=== PATIENT | female | born 1965 | race Caucasian/White ===

== ENCOUNTER 2017-11-16 05:42 | Day surgery (SDC) | payer BC ==
[~2017-11-16] VITALS: Ht 167.6 cm; Wt 63.5 kg
[2017-11-16] VITALS (12 sets, daily range): BP systolic 118–140; BP diastolic 68–86
[~2017-11-16 05:42] MED LIST: TRAZODONE HCL150 MG ORAL; VENLAFAXINE H37.5 MG ORAL; XANAX0.5 MG ORAL
[2017-11-16] MEDS ORDERED: CALCIUM600 M1 PO (06:22)
[2017-11-16] MEDS ORDERED: EXEMESTANE25 MG PO (06:22)
[2017-11-16 06:57] LABS: ANION GAP 12 mmol/L (5-15); BLOOD UREA NITROGEN 21 mg/dL (7-18); CALCIUM 9.3 MG/DL (8.5-10.1); CARBON DIOXIDE 27 MMOL/L (21-32); CHLORIDE 101 MMOL/L (98-107); CREATININE 0.8 MG/DL (0.55-1.30); POTASSIUM 4.2 MMOL/L (3.5-5.1); SODIUM 140 MMOL/L (136-145)
[2017-11-16 06:58] LABS: BASOPHILS % (AUTO) 1.2 % (0.0-2.0); HEMATOCRIT 37.2 % (37.0-47.0); HEMOGLOBIN 12.3 G/DL (12.0-16.0); LYMPHOCYTES % (AUTO) 25.9 % (20.0-45.0); MEAN CORPUSCULAR VOLUME 88 FL (80-99); MONOCYTES % (AUTO) 8.2 % (1.0-10.0); NEUTROPHILS % (AUTO) 62.7 % (45.0-75.0); PLATELET COUNT 244 K/UL (150-450); RED BLOOD COUNT 4.23 M/UL (4.20-5.40); RED CELL DISTRIBUTION WIDTH 11.8 % (11.6-14.8); WHITE BLOOD COUNT 5.7 K/UL (4.8-10.8)
[2017-11-16 06:59] LABS: INR 1.1 (0.9-1.1)
[2017-11-16] MEDS ORDERED: Lidocaine 1% 10mg/ml/Epi 0.005mg/ml 30ml vial INJ ONE (07:12)
[2017-11-16] MEDS ORDERED: Bacitracin Oint 15gm Tube TOPIC ONE (07:12)
[2017-11-16] MEDS ORDERED: LR 1000ml 1,000 ML IVLG SCH (07:18)
--- NOTE | 2017-11-16 07:18 | Anethesia Preoperative Eval ---
Anesthesia Pre-op PMH/ROS General Date of Evaluation: Nov 16, 2017 Anesthesiologist: Rigoberto ASA Score: ASA 3 Mallampati Score Class I : Soft palate, uvula, fauces, pillars visible Class II: Soft palate, uvula, fauces visible Class III: Soft palate, base of uvula visible Class IV: Only hard plate visible Mallampati Classification: Class II Surgeon: Claudia Diagnosis: Right breast radiation Surgical Procedure: Right breast capsulotomy Anesthesia History: none Family History: no anesthesia problems Allergies: Coded Allergies: LEVOFLOXACIN (Verified Allergy, Severe, 11/15/17) THROAT CLOSES UP,HIVES PENICILLINS (Verified Allergy, Severe, 11/15/17) THROAT CLOSES UP,HIVES BACITRACIN (Verified Allergy, Intermediate, 11/16/17) TOPICAL OINTMENT-ITCHY,HIVES NEOMYCIN (Verified Allergy, Intermediate, 11/16/17) TOPICAL OINTMENT-ITCHY,HIVES PRAMOXINE (Verified Allergy, Intermediate, 11/15/17) TOPICAL OINTMENT-ITCHY,HIVES Uncoded Allergies: CEPHALOSPO (Allergy, Severe, 11/15/17) THROAT CLOSES UP,HIVES Medications: see eMAR Past Medical History Cardiovascular: Denies: HTN, CAD, [place], valve dz, arrhythmia, other Pulmonary: Denies: asthma, COPD, DAMI[place]N, other Gastrointestinal/Genitourinary: Denies: GERD, CRI, ESRD, other Neurologic/Psychiatric: Reports: depression/anxiety; Denies: dementia, CVA, TIA, other Endocrine: Denies: DM, hypothyroidism, steroids, other HEENT: Denies: cataract (L), cataract (R), glaucoma, [place] (L), [place] (R), other Hematology/Immune: Reports: other - right breast cancer; Denies: anemia, DVT, bleeding disorder Musculoskeletal/Integumentary: Denies: OA, RA, DJD, DDD, edema, other PSxH Narrative: Bilateral breast augmentation, right breast lumpectomy, tummy tuck, partial hysterectomy Anesthesia Pre-op Phys. Exam Physician Exam Last Vital Signs Date Time Temp Pulse Resp B/P (MAP) Pulse Ox O2 Delivery O2 Flow Rate FiO2 11/16/17 06:14 96.4 73 20 120/79 (93) 96 96.4 11/16/17 06:12 Room Air Constitutional: NAD Cardiovascular: RRR Respiratory: CTA Airway Exam Mallampati Score: Class II MO: full ROM: full Anesthesia Pre-op A/P Labs Hematology Test 11/16/17 06:35 White Blood Count 5.7 K/UL (4.8-10.8) Red Blood Count 4.23 M/UL (4.20-5.40) Hemoglobin 12.3 G/DL (12.0-16.0) Hematocrit 37.2 % (37.0-47.0) Mean Corpuscular Volume 88 FL (80-99) Mean Corpuscular Hemoglobin 29.1 PG (27.0-31.0) Mean Corpuscular Hemoglobin Concent 33.1 G/DL (32.0-36.0) Red Cell Distribution Width 11.8 % (11.6-14.8) Platelet Count 244 K/UL (150-450) Mean Platelet Volume 7.1 FL (6.5-10.1) Neutrophils (%) (Auto) 62.7 % (45.0-75.0) Lymphocytes (%) (Auto) 25.9 % (20.0-45.0) Monocytes (%) (Auto) 8.2 % (1.0-10.0) Eosinophils (%) (Auto) 2.0 % (0.0-3.0) Basophils (%) (Auto) 1.2 % (0.0-2.0) Coagulation Test 11/16/17 06:35 Prothrombin Time Pending Prothromb Time International Ratio Pending Activated Partial Thromboplast Time Pending Chemistry Test 11/16/17 06:35 Sodium Level 140 MMOL/L (136-145) Potassium Level 4.2 MMOL/L (3.5-5.1) Chloride Level 101 MMOL/L (98-107) Carbon Dioxide Level 27 MMOL/L (21-32) Anion Gap 12 mmol/L (5-15) Blood Urea Nitrogen 21 mg/dL (7-18) H Creatinine 0.8 MG/DL (0.55-1.30) Estimat Glomerular Filtration Rate > 60 mL/min (>60) Glucose Level 97 MG/DL (74-106) Calcium Level 9.3 MG/DL (8.5-10.1) Studies Pre-op Studies: EKG - sr Risk Assessment & Plan Assessment: ASA III Plan: GA Status Change Before Surgery: No Pre-Antibiotics Drug: Breann Ruth MD Nov 16, 2017 07:18
[2017-11-16] MEDS ORDERED: fentaNYL 100 mcg/2 mL IV PRN (07:30)
[2017-11-16] MEDS ORDERED: Labetalol 5mg/ml 20ml vial IV PRN (07:30)
[2017-11-16] MEDS ORDERED: Hydromorphone 0.5mg/0.5ml inj IVP PRN (07:30)
[2017-11-16] MEDS ORDERED: DiphenhydrAMINE 50mg/ml Inj IVP PRN (07:30)
[2017-11-16] MEDS ORDERED: Lidocaine 1% MPF 10mg/ml 5ml ONE (07:41)
[2017-11-16] MEDS ORDERED: Midazolam 2mg/2ml Inj ONE (07:41)
[2017-11-16] MEDS ORDERED: Propofol 200mg/20ml IV ONE ×2 (07:41→08:58)
[2017-11-16] MEDS ORDERED: fentaNYL 100 mcg/2 mL IV ONE (07:41)
--- NOTE | 2017-11-16 08:02 | History and Physical ---
History & Physical (DB) History & Physical History & Physical Chief Complaint: encapsulation of right breast status post breast aug below the muscle status post radation for breast cancer Reason for Hospitalizto do open capsulotomy ofright breast ation: History obtained from: Chart and Patient HPI: is a year old female who presents with . Past Medical History: prior radation for breast cancer Social History:negneg Past Medical History:prior radation for breast cancer Diagnosis: encapsulation right breast with deformity and painbreast aug bilateral 4 weeks ago Past Surgical History:status postbilateral breast aug Social History: Occupational History: Social History Main Topics: Smoking status: Smokeless tobacco: Alcohol use: Drug use: Sexual activity: Partners: control/ protection: Family History: Allergies: Medications: Review of Symptoms: General ROS: no weight loss or fever Psychological ROS: no depression or mood changes, no memory loss Ophthalmic ROS: no visual changes or eye irritation ENT ROS: no nasal congestion, hearing loss, dizziness Allergy and Immunology ROS: no allergic symptoms or urticaria Hematological and Lymphatic ROS: no swollen glands, unusual bleeding or bruising Endocrine ROS: no polyuria, polydipsia, weight changes, temperature intolerance Respiratory ROS: no cough, shortness of breath, or wheezing Cardiovascular ROS: no chest pain or dyspnea on exertion Gastrointestinal ROS: no abdominal pain, change in bowel habits, or black or bloody stools Musculoskeletal ROS: no myalgias or arthralgias Neurological ROS: no TIA or stroke symptoms Dermatological ROS: no new or changing skin lesions, rashes or pruritis Physical Exam Vitals: Intake/Output Summary (Last 24 hours) General appearance: alert, cooperative, no distress, appears stated age Head: Normocephalic, without obvious abnormality, atraumatic Eyes: conjunctivae/corneas clear. PERRL, EOM's intact. Throat: Lips, mucosa, and tongue normal. Teeth and gums normal Neck: supple, symmetrical, trachea midline, no adenopathy, thyroid: not enlarged, symmetric, no tenderness/mass/nodules, no carotid bruit and no JVD Lungs: clear to auscultation bilaterally Heart: regular rate and rhythm, S1, S2 normal, no murmur, click, rub or gallop Abdomen: soft, non-tender. Bowel sounds normal. No masses, no organomegaly Extremities: extremities normal, atraumatic, no cyanosis or edema Pulses: 2+ and symmetric Skin: Skin color, texture, turgor normal. No rashes or lesions Neurologic: Grossly normal Laboratories: Estimated: Imaging and ancillary data Assessment/Problem List: Plan: DVT Prophylaxis: scd Code status: full Hospital Classification declaration: Based on this initial evaluation, and depending on the patient's clinical course, I anticipate that this patient will require hospitalization for 2-3 days. Disposition: Once the patient is stable to leave the hospital, I anticipate the patient will likely be discharged to the following environment I spent 70 minutes on this patient's case, and minutes was dedicated to counseling and/or care coordination. Case was discussed with Time of note may not reflect time of encounter. Christiano Taylor MD Nov 16, 2017 08:02
--- NOTE | 2017-11-16 08:08 | Pre-Procedure Note/Attestation ---
Pre-Procedure Note/Attestation Complete Prior to Procedure Planned Procedure: right Procedure Narrative: encapsulation of right breast status post radiation for breast cancer Indications for Procedure Pre-Operative Diagnosis: encapsulation right breast Attestation I attest that I discussed the nature of the procedure; its benefits; risks and complications; and alternatives (and the risks and benefits of such alternatives ), prior to the procedure, with the patient (or the patient's legal claims customer service representative). I attest that, if there was a reasonable possibility of needing a blood transfusion, the patient (or the patient's legal claims customer service representative) was given the [place] Department of Health Services standardized written summary, pursuant to the [place] Blood Safety Act ([place] Health and Safety Code # 1645, as amended). I attest that I re-evaluated the patient just prior to the surgery and that there has been no change in the patient's H&P, except as documented below: Christiano Taylor MD Nov 16, 2017 08:08
[2017-11-16] MEDS ORDERED: Clindamycin 600mg 50 ML IV ONE (08:10)
[2017-11-16] MEDS ORDERED: LR 1000ml ONE (08:45)
[2017-11-16] MEDS ORDERED: Dexamethasone 4mg/ml vial ONE (08:58)
--- NOTE | 2017-11-16 10:05 | 48 Hour Post Anesthesia Eval ---
Post Anesthesia Evaluation Procedure: Right breast capsulotomy Date of Evaluation: Nov 16, 2017 Airway: patent Nausea: No Vomiting: No Pain Intensity: 0 Hydration Status: adequate Cardiopulmonary Status: at baseline Mental Status/LOC: patient returned to baseline Post-Anesthesia Complications: 0 Follow-up care needed: ready to discharge Breann Joshua MD Nov 16, 2017 10:05
--- NOTE | 2017-11-16 10:05 | Immediate Post-Op Evaluation ---
Immediate Post-Op Evalulation Immediate Post-Op Evalulation Procedure: Right breast capsulotomy Date of Evaluation: Nov 16, 2017 Time of Evaluation: 10:06 IV Fluids: 700 Blood Products: 0 Estimated Blood Loss: min Urinary Output: 0 Blood Pressure Systolic: 136 Blood Pressure Diastolic: 71 Pulse Rate: 83 Respiratory Rate: 16 O2 Sat by Pulse Oximetry: 99 Temperature (Fahrenheit): 97.1 Pain Score (1-10): 0 Nausea: No Vomiting: No Complications 0 Patient Status: awake, reacts, patent, none Hydration Status: adequate Drug: Clindamcyin 600mg Given Within 1 Hr of Incision: Yes Time Given: 08:50 Breann Joshua MD Nov 16, 2017 10:05
--- NOTE | 2017-11-23 01:15 | Operative Note - Dictated ---
DATE OF OPERATION: 11/16/2017 SURGEON: Christiano Taylor M.D. BULL RIVETER: None. ANESTHESIOLOGIST: Breann Joshua M.D. PREOPERATIVE DIAGNOSIS: Status post radiation to the right breast and status post breast augmentation done a few weeks ago. The patient is encapsulated and has pain and upward placement of the implant. The patient was shown pictures from the book and was aware of the risks, complications, and alternative methods of treatment. The patient had surgery also on the opposite side, but without radiation and was done with implant underneath the muscle. The patient is very happy with that, but because of the radiation and sloughed tissue at different levels, she was unhappy with the right breast implant. Purpose of the surgery was to lower the position of the implant and to do a capsulotomy and also to cut the capsule and the muscle vertically in a dorsal cephalad position to allow for the pocket, did not have a restriction from right to left. DESCRIPTION OF PROCEDURE: The patient was brought to the operating table. In the OR was given general inhalation anesthesia and was prepped in the usual manner for surgery, was injected with 0.25% Xylocaine 1:400,000 epinephrine with a spinal needle and then a periareolar incision was made. The incision was made down to the capsule of the implant. We then in that pocket through the capsule did a dissection deep right to left and down approximately maybe 2 inches. We then did the dissection above the capsule and saw the capsule and the muscle and split that in two and just by splitting it, it . At that point, the implant dropped into each pocket , we did not have to take out the implant. We then sutured the capsule. Actually , we kept the vertical incision open and cauterized the bleeders and then put a drain, Uri-Hidalgo. We then closed the skin using 3-0 Vicryl in the breast tissue and also in the dermis and then we used a continuous running 5-0 blue Prolene in the skin. The drain was sutured using a 3-0 Vicryl. The patient was then extubated and transferred to the postop recovery facility in satisfactory condition. ESTIMATED BLOOD LOSS: Less than 10 mL. Christiano Taylor M.D. DR: RIMA JOB#: [id number] CC: JOSE
[2017-11-24] MEDS ORDERED: TRACE MINERALS PO (15:55)
== END 2017-11-16 12:25 | disposition home or self-care (01) ==
LOC: SUR 05:42
DX: T85.44XA Capsular contracture of breast implant, initial encounter (principal); Y83.8 Other surgical procedures as the cause of abnormal reaction of the patient, or of later complication, without mention of misadventure at the time of the procedure; Y92.009 Unspecified place in unspecified non-institutional (private) residence as the place of occurrence of the external cause; F32.9 Major depressive disorder, single episode, unspecified; F41.9 Anxiety disorder, unspecified; Z85.3 Personal history of malignant neoplasm of breast; Z90.710 Acquired absence of both cervix and uterus; Z88.1 Allergy status to other antibiotic agents; Z88.0 Allergy status to penicillin; Z88.8 Allergy status to other drugs, medicaments and biological substances
CPT/HCPCS: 19370; 36415; 80048; 85025; 85610; 85730; J1100; J1170; J1200; J2250; J2405; J2704; J3010; J7120; 94003; 94150; S0077

== ENCOUNTER 2017-11-27 05:54 | Day surgery (SDC) | payer BC ==
[~2017-11-27] VITALS: Ht 167.6 cm; Wt 63.5 kg
[2017-11-27] VITALS (9 sets, daily range): BP systolic 101–112; BP diastolic 59–75
[~2017-11-27 05:54] MED LIST changes: +CALCIUM600 M1 PO; +EXEMESTANE25 MG PO; +TRACE MINERALS PO
[2017-11-27] MEDS ORDERED: Lidocaine 1% 10mg/ml/Epi 0.005mg/ml 30ml vial INJ ONE (07:07)
[2017-11-27] MEDS ORDERED: Bacitracin 50000 Units Vial ONE (07:07)
[2017-11-27] MEDS ORDERED: Bacitracin Oint 15gm Tube TOPIC ONE (07:07)
[2017-11-27] MEDS ORDERED: Zemuron 50mg/5ml Inj IV ONE (07:27)
[2017-11-27] MEDS ORDERED: Clindamycin 600mg 50 ML IV ONE (07:27)
[2017-11-27] MEDS ORDERED: Dexamethasone 4mg/ml vial ONE (07:29)
[2017-11-27] MEDS ORDERED: Metoclopramide 10mg/2ml Inj ONE (07:29)
[2017-11-27] MEDS ORDERED: Midazolam 2mg/2ml Inj ONE (07:30)
[2017-11-27] MEDS ORDERED: Lidocaine 1% MPF 10mg/ml 5ml ONE (07:30)
[2017-11-27] MEDS ORDERED: Propofol 200mg/20ml IV ONE (07:30)
[2017-11-27] MEDS ORDERED: fentaNYL 100 mcg/2 mL IV ONE (07:30)
[2017-11-27] MEDS ORDERED: LR 1000ml 1,000 ML IVLG SCH (07:38)
--- NOTE | 2017-11-27 07:38 | Anethesia Preoperative Eval ---
Anesthesia Pre-op PMH/ROS General Date of Evaluation: Nov 27, 2017 Anesthesiologist: Rigoberto ASA Score: ASA 3 Mallampati Score Class I : Soft palate, uvula, fauces, pillars visible Class II: Soft palate, uvula, fauces visible Class III: Soft palate, base of uvula visible Class IV: Only hard plate visible Mallampati Classification: Class II Surgeon: Claudia Diagnosis: Right breast cancer Surgical Procedure: Left breast mastopexy Anesthesia History: none Family History: no anesthesia problems Allergies: Coded Allergies: LEVOFLOXACIN (Verified Allergy, Severe, 11/15/17) THROAT CLOSES UP,HIVES PENICILLINS (Verified Allergy, Severe, 11/15/17) THROAT CLOSES UP,HIVES BACITRACIN (Verified Allergy, Intermediate, 11/16/17) TOPICAL OINTMENT-ITCHY,HIVES NEOMYCIN (Verified Allergy, Intermediate, 11/16/17) TOPICAL OINTMENT-ITCHY,HIVES PRAMOXINE (Verified Allergy, Intermediate, 11/15/17) TOPICAL OINTMENT-ITCHY,HIVES Uncoded Allergies: CEPHALOSPO (Allergy, Severe, 11/15/17) THROAT CLOSES UP,HIVES Medications: see eMAR Past Medical History Cardiovascular: Denies: HTN, CAD, [place], valve dz, arrhythmia, other Pulmonary: Denies: asthma, COPD, DAMI[place], other Gastrointestinal/Genitourinary: Denies: GERD, CRI, ESRD, other Neurologic/Psychiatric: Reports: depression/anxiety; Denies: dementia, CVA, TIA, other Endocrine: Denies: DM, hypothyroidism, steroids, other HEENT: Denies: cataract (L), cataract (R), glaucoma, [place] (L), [place] (R), other Hematology/Immune: Denies: anemia, DVT, bleeding disorder, other Musculoskeletal/Integumentary: Denies: OA, RA, DJD, DDD, edema, other PSxH Narrative: partial hysterectomy, multiple breast sx, T&A, lasik Anesthesia Pre-op Phys. Exam Physician Exam Last Vital Signs Date Time Temp Pulse Resp B/P (MAP) Pulse Ox O2 Delivery O2 Flow Rate FiO2 11/27/17 06:25 Room Air 11/27/17 06:20 97.2 71 18 112/75 (87) 100 97.2 Constitutional: NAD Cardiovascular: RRR Respiratory: CTA Airway Exam Mallampati Score: Class II MO: full ROM: full Anesthesia Pre-op A/P Labs see chart Studies Pre-op Studies: EKG - sr Risk Assessment & Plan Assessment: ASA III Plan: GA Status Change Before Surgery: No Pre-Antibiotics Drug: Clindamycin 600mg Given Within 1 Hr of Incision: Yes Breann Joshua MD Nov 27, 2017 07:38
[2017-11-27] MEDS ORDERED: DiphenhydrAMINE 50mg/ml Inj IVP PRN (07:45)
[2017-11-27] MEDS ORDERED: Labetalol 5mg/ml 20ml vial IV PRN (07:45)
[2017-11-27] MEDS ORDERED: LORazepam Inj 2mg/ml 1ml IV PRN (07:45)
[2017-11-27] MEDS ORDERED: Hydromorphone 0.5mg/0.5ml inj IVP PRN (07:45)
[2017-11-27] MEDS ORDERED: fentaNYL 100 mcg/2 mL IV PRN (07:45)
[2017-11-27] MEDS ORDERED: Midazolam 2mg/2ml Inj IVP PRN (07:45)
[2017-11-27] MEDS ORDERED: Ketorolac 30mg Inj IV PRN (07:45)
--- NOTE | 2017-11-27 07:59 | Pre-Procedure Note/Attestation ---
Pre-Procedure Note/Attestation Complete Prior to Procedure Planned Procedure: left Procedure Narrative: status post radiation of right breast has contraction had prior open capsulotomy rigt side status post breast aug now needs a verticle mastopexy of left side Indications for Procedure Pre-Operative Diagnosis: has elongation of breast compared to the right breast Attestation I attest that I discussed the nature of the procedure; its benefits; risks and complications; and alternatives (and the risks and benefits of such alternatives ), prior to the procedure, with the patient (or the patient's legal district representative). I attest that, if there was a reasonable possibility of needing a blood transfusion, the patient (or the patient's legal district representative) was given the [place] Department of Health Services standardized written summary, pursuant to the [place] Blood Safety Act ([place] Health and Safety Code # 1645, as amended). I attest that I re-evaluated the patient just prior to the surgery and that there has been no change in the patient's H&P, except as documented below: Christiano Taylor MD Nov 27, 2017 07:59
[2017-11-27] MEDS ORDERED: LR 1000ml ONE (08:00)
[2017-11-27] MEDS ORDERED: Sterile Water Irrig 1000ml IRRIG ONE (08:00)
[2017-11-27] MEDS ORDERED: NS Irrig 1000ml IRRIG ONE (08:34)
--- NOTE | 2017-11-27 09:14 | Immediate Post-Op Evaluation ---
Immediate Post-Op Evalulation Immediate Post-Op Evalulation Procedure: Left breast mastopexy Date of Evaluation: Nov 27, 2017 Time of Evaluation: 09:17 IV Fluids: 800 Blood Products: 0 Estimated Blood Loss: min Urinary Output: 0 Blood Pressure Systolic: 109 Blood Pressure Diastolic: 59 Pulse Rate: 60 Respiratory Rate: 16 O2 Sat by Pulse Oximetry: 100 Temperature (Fahrenheit): 97.5 Pain Score (1-10): 0 Nausea: No Vomiting: No Complications 0 Patient Status: awake, reacts, patent, none Hydration Status: adequate Drug: Clindamycin 600mg Given Within 1 Hr of Incision: Yes Time Given: 08:00 Breann Joshua MD Nov 27, 2017 09:14
--- NOTE | 2017-11-27 09:15 | 48 Hour Post Anesthesia Eval ---
Post Anesthesia Evaluation Procedure: Left breast mastopexy Date of Evaluation: Nov 27, 2017 Airway: patent Nausea: No Vomiting: No Pain Intensity: 0 Hydration Status: adequate Cardiopulmonary Status: at baseline Mental Status/LOC: patient returned to baseline Post-Anesthesia Complications: 0 Follow-up care needed: ready to discharge Breann Joshua MD Nov 27, 2017 09:15
--- NOTE | 2017-11-27 09:16 | Operative Note - PDOC ---
Operative Note Operative Note Pre-op Diagnosis: has elongation of breast compared to the right breast Post-op Diagnosis: same as pre-op Specimen: yes Complications: none Condition: stable Estimated Blood Loss: minimal Drains: none Implant(s) used?: No Christiano Taylor MD Nov 27, 2017 09:16
--- NOTE | 2017-11-30 23:45 | Operative Note - Dictated ---
DATE OF OPERATION: 11/27/2017 SURGEON: Christiano Taylor M.D. ANESTHESIOLOGIST: Breann Joshua M.D. PREOPERATIVE DIAGNOSIS: Status post radiation for cancer of the right breast with submuscular implants done several weeks ago and the patient had a prior removal of anterior capsule, which was restricted in the right breast with deepening of the capsule inferiorly to allow for the implant on the right side to drop into the pocket as a result of scar tissue through many levels of tissue from prior radiation. Following this, the left breast looked too long and droopy and was asymmetrical to the right breast. The right breast is now looking good from the extra surgery that she had, which included the incisions of the anterior capsule and deepening of the inferior capsule. So, the patient needed a vertical mastopexy of the left breast. This was to be done under inhalation anesthesia. The patient saw many photographs and was aware of the risks, complications, and alternative methods of treatment. The goal was to reduce the size of the areola and lift the nipple-areolar complex and make the breast smaller to match the right breast. DESCRIPTION OF PROCEDURE: We began by prepping the patient and we then injected with 0.25% Xylocaine and 1:400,000 of epinephrine and with the markings already done, we made the 15 blade incision through the markings and excised superior and cephalad skin to the nipple-areolar complex and broaden the incisions to make a T. This is a lollipop incision. We closed all incisions using 3-0 Vicryl and then closed the skin using a continuous running 4-0 blue Prolene. The nipple areolar complex looked good at the end of the procedure. The breast was higher and in direct alignment to the right breast. The patient had less than 10 mL of blood loss. The patient was then extubated and transferred to the postop recovery facility in satisfactory condition. Christiano Taylor M.D. DR: DARYL JOB#: [id number] CC: JOSE
== END 2017-11-27 10:40 | disposition home or self-care (01) ==
LOC: SUR 05:54
DX: N65.1 Disproportion of reconstructed breast (principal); Z85.3 Personal history of malignant neoplasm of breast; F32.9 Major depressive disorder, single episode, unspecified; F41.9 Anxiety disorder, unspecified; Z88.1 Allergy status to other antibiotic agents; Z88.0 Allergy status to penicillin; Z88.8 Allergy status to other drugs, medicaments and biological substances; Z90.710 Acquired absence of both cervix and uterus
CPT/HCPCS: 19316; J1100; J2250; J2405; J2704; J2765; J3010; J7120; 94003; 94150; S0077

== ENCOUNTER 2017-12-14 08:24 | Day surgery (SDC) | payer BC ==
[~2017-12-14] VITALS: Ht 167.6 cm; Wt 63.5 kg
[2017-12-14] VITALS (7 sets, daily range): BP systolic 107–120; BP diastolic 63–78
--- NOTE | 2017-12-14 09:03 | Anethesia Preoperative Eval ---
Anesthesia Pre-op PMH/ROS General Date of Evaluation: Dec 14, 2017 Time of Evaluation: 09:00 Anesthesiologist: Aileen Cruz CRNA ASA Score: ASA 2 Mallampati Score Class I : Soft palate, uvula, fauces, pillars visible Class II: Soft palate, uvula, fauces visible Class III: Soft palate, base of uvula visible Class IV: Only hard plate visible Mallampati Classification: Class I Surgeon: Claudia Diagnosis: s/p breast augmentation Surgical Procedure: Horizontal lift of LEFT Breast Anesthesia History: PONV Allergies: Coded Allergies: CEPHALOSPORINS (Verified Allergy, Severe, 12/13/17) THROAT CLOSES UP,HIVES LEVOFLOXACIN (Verified Allergy, Severe, 11/15/17) THROAT CLOSES UP,HIVES PENICILLINS (Verified Allergy, Severe, 11/15/17) THROAT CLOSES UP,HIVES BACITRACIN (Verified Allergy, Intermediate, 11/16/17) TOPICAL OINTMENT-ITCHY,HIVES NEOMYCIN (Verified Allergy, Intermediate, 11/16/17) TOPICAL OINTMENT-ITCHY,HIVES PRAMOXINE (Verified Allergy, Intermediate, 11/15/17) TOPICAL OINTMENT-ITCHY,HIVES Medications: see eMAR Past Medical History Cardiovascular: Reports: other - asymptomatic murmur; Denies: HTN, CAD, [place], valve dz, arrhythmia Pulmonary: Denies: asthma, COPD, [place], other Gastrointestinal/Genitourinary: Denies: GERD, CRI, ESRD, other Neurologic/Psychiatric: Reports: depression/anxiety - on xanax Endocrine: Denies: DM, hypothyroidism, steroids, other Hematology/Immune: Denies: anemia, DVT, bleeding disorder, other Musculoskeletal/Integumentary: Reports: other - Breast CA s/p lumpectomy and radiation treatment; Denies: OA, RA, DJD, DDD, edema PMH Narrative: 52 yo female with prior medical history of breast CA s/p lumpectomy and radiation treatment; multiple drug allergies, no prior anesthetic complications PSxH Narrative: multiple cosmetic surgeries, s/p lumpectomy for breast CA Anesthesia Pre-op Phys. Exam Physician Exam Last Vital Signs Date Time Temp Pulse Resp B/P (MAP) Pulse Ox O2 Delivery O2 Flow Rate FiO2 12/14/17 08:50 97.1 75 18 114/78 (90) 99 97.1 Constitutional: NAD Neurologic: CN 2-12 intact Cardiovascular: RRR Respiratory: CTA Gastrointestinal: S/NT/ND Airway Exam Mallampati Score: Class I MO: full TMD: > 3 FB ROM: full Teeth: intact, other - lower permanent retainer Dentures: no upper, no lower Anesthesia Pre-op A/P Risk Assessment & Plan Assessment: 52 ye female s/p breast augmentation requiring left horizontal lift, (+) anxiety Plan: MAC Status Change Before Surgery: Aileen Jaeger CRNA Dec 14, 2017 09:03
[2017-12-14] MEDS ORDERED: Lidocaine 1% 10mg/ml/Epi 0.005mg/ml 30ml vial INJ ONE (10:18)
[2017-12-14] MEDS ORDERED: Propofol 200mg/20ml IV ONE (10:30)
[2017-12-14] MEDS ORDERED: Lidocaine 1% MPF 10mg/ml 5ml ONE (10:30)
[2017-12-14] MEDS ORDERED: Midazolam 2mg/2ml Inj ONE (10:30)
[2017-12-14] MEDS ORDERED: LR 1000ml ONE (10:45)
[2017-12-14] MEDS ORDERED: Sterile Water Irrig 1000ml IRRIG ONE (10:45)
[2017-12-14] MEDS ORDERED: NS Irrig 1000ml ONE (10:45)
[2017-12-14] MEDS ORDERED: fentaNYL 100 mcg/2 mL IV ONE ×2 (10:53→11:03)
--- NOTE | 2017-12-14 11:49 | Pre-Procedure Note/Attestation ---
Pre-Procedure Note/Attestation Complete Prior to Procedure Planned Procedure: left Procedure Narrative: excision of verticle and horizontal skin left breast Attestation I attest that I discussed the nature of the procedure; its benefits; risks and complications; and alternatives (and the risks and benefits of such alternatives ), prior to the procedure, with the patient (or the patient's legal industrial sales representative). I attest that, if there was a reasonable possibility of needing a blood transfusion, the patient (or the patient's legal industrial sales representative) was given the [facility] standardized written summary, pursuant to the [place] Blood Safety Act ([place] Health and Safety Code # 1645, as amended). I attest that I re-evaluated the patient just prior to the surgery and that there has been no change in the patient's H&P, except as documented below: Christiano Taylor MD Dec 14, 2017 11:49
--- NOTE | 2017-12-14 11:51 | Operative Note - PDOC ---
Operative Note Operative Note Post-op Diagnosis: same as pre-op Specimen: yes Complications: none Condition: stable Estimated Blood Loss: minimal Drains: none Implant(s) used?: No Christiano Taylor MD Dec 14, 2017 11:51
--- NOTE | 2017-12-14 11:52 | Immediate Post-Op Evaluation ---
Immediate Post-Op Evalulation Immediate Post-Op Evalulation Procedure: LEFT breast horizontal lift Date of Evaluation: Dec 14, 2017 Time of Evaluation: 11:44 IV Fluids: LR 300 ml Estimated Blood Loss: minimal Blood Pressure Systolic: 107 Blood Pressure Diastolic: 63 Pulse Rate: 75 Respiratory Rate: 21 O2 Sat by Pulse Oximetry: 98 Temperature (Fahrenheit): 98.2 Nausea: No Vomiting: No Complications none noted Patient Status: awake, reacts, patent Hydration Status: adequate Aileen Cruz CRNA Dec 14, 2017 11:52
[2017-12-15 10:59] VITALS: BP 120/73
--- NOTE | 2017-12-15 10:59 | 48 Hour Post Anesthesia Eval ---
Post Anesthesia Evaluation Procedure: LEFT breast horizontal lift Date of Evaluation: Dec 14, 2017 Time of Evaluation: 12:30 Blood Pressure Systolic: 120 0: 73 Pulse Rate: 68 Respiratory Rate: 18 Temperature (Fahrenheit): 98.0 O2 Sat by Pulse Oximetry: 99 Airway: patent Nausea: No Vomiting: No Pain Intensity: 0 Hydration Status: adequate Mental Status/LOC: patient returned to baseline Follow-up Care/Observations: none Post-Anesthesia Complications: none noted Follow-up care needed: ready to discharge Aileen Cruz CRNA Dec 15, 2017 10:59
--- NOTE | 2017-12-21 17:15 | Operative Note - Dictated ---
DATE OF OPERATION: 12/14/2017 SURGEON: Christiano Taylor M.D. PREOPERATIVE DIAGNOSES: Status post radiation to the right breast with augmentation done beneath the muscle and prior surgeries of the left side to match the right, the vertical mastopexy done in the past and prior breast implantation using silicone gel implants. The patient was shown many photographs in the breast augmentation book and was aware of the risks, complications, and alternative methods of treatment. The patient consented with realistic expectations. The patient had an elongation of the left breast compared to the right and wanted it to be lifted up and shortened. The nipple-areolar complex was in the right place, but it was too much bottoming out with a vertical lift and so we needed to do the horizontal component of the Angulo pattern and I incorporated also a small portion of the vertical limb to create to get more projection of the breast and narrowing of the breast and left at the same time. The areas in question were injected with 0.25% Xylocaine 1:400,000 of epinephrine and then it was prepped first and then injected and then we took the #10 blade and excised along the margins of the horizontal limb and vertical limb. We took out the skin, subcutaneous tissue and breast tissue and closed it using 2-0 and 3-0 Vicryl sutures interrupted in the dermis and then a continuous running 4-0 blue Prolene in the vertical as well as horizontal component. A 4x4's and bacitracin was applied to the wound and the patient was transferred to the postoperative recovery facility in satisfactory condition. There was less than 10 mL blood loss. Christiano Taylor M.D. DR: RIMA JOB#: [id number] CC:
== END 2017-12-14 12:40 | disposition home or self-care (01) ==
LOC: SUR 08:24
DX: N65.1 Disproportion of reconstructed breast (principal); Z85.3 Personal history of malignant neoplasm of breast; R01.1 Cardiac murmur, unspecified; F32.9 Major depressive disorder, single episode, unspecified; F41.9 Anxiety disorder, unspecified; Z88.1 Allergy status to other antibiotic agents; Z88.0 Allergy status to penicillin; Z88.8 Allergy status to other drugs, medicaments and biological substances
CPT/HCPCS: 19316; J2250; J2704; J3010; J7120; 94003; 94150

== ENCOUNTER 2018-01-11 06:52 | Day surgery (SDC) | payer BC ==
[~2018-01-11] VITALS: Ht 167.6 cm; Wt 63.5 kg
[2018-01-11] VITALS (11 sets, daily range): BP systolic 101–116; BP diastolic 56–72
--- NOTE | 2018-01-11 07:42 | Pre-Procedure Note/Attestation ---
Pre-Procedure Note/Attestation Complete Prior to Procedure Planned Procedure: right Procedure Narrative: replace breast implant from under muscle to over the muscle Indications for Procedure Pre-Operative Diagnosis: status radiation for breast cancer and wanting symmetry Attestation I attest that I discussed the nature of the procedure; its benefits; risks and complications; and alternatives (and the risks and benefits of such alternatives ), prior to the procedure, with the patient (or the patient's legal loss control representative). I attest that, if there was a reasonable possibility of needing a blood transfusion, the patient (or the patient's legal loss control representative) was given the [facility] standardized written summary, pursuant to the [place] Blood Safety Act ([place] Health and Safety Code # 1645, as amended). I attest that I re-evaluated the patient just prior to the surgery and that there has been no change in the patient's H&P, except as documented below: Christiano Taylor MD Jan 11, 2018 07:42
[2018-01-11] MEDS ORDERED: fentaNYL 100 mcg/2 mL IV ONE (08:59)
[2018-01-11] MEDS ORDERED: Midazolam 2mg/2ml Inj ONE (08:59)
[2018-01-11] MEDS ORDERED: Propofol 200mg/20ml IV ONE (09:00)
[2018-01-11] MEDS ORDERED: Lidocaine 1% MPF 10mg/ml 5ml ONE (09:00)
[2018-01-11] MEDS ORDERED: Ketorolac 30mg Inj ONE (09:00)
[2018-01-11] MEDS ORDERED: Bacitracin Oint 15gm Tube TOPIC ONE (09:03)
[2018-01-11] MEDS ORDERED: Clindamycin 600mg 50 ML IV ONE (09:03)
[2018-01-11] MEDS ORDERED: Lidocaine 1% 10mg/ml/Epi 0.005mg/ml 30ml vial INJ ONE (09:03)
[2018-01-11] MEDS ORDERED: LR 1000ml ONE (10:00)
[2018-01-11] MEDS ORDERED: Sterile Water Irrig 1000ml IRRIG ONE (10:00)
[2018-01-11] MEDS ORDERED: NS Irrig 1000ml ONE (10:00)
[2018-01-11] MEDS ORDERED: LR 1000ml 1,000 ML IVLG SCH (10:09)
--- NOTE | 2018-01-11 10:09 | Anethesia Preoperative Eval ---
Anesthesia Pre-op PMH/ROS General Date of Evaluation: Jan 11, 2018 Time of Evaluation: 09:20 Anesthesiologist: Leonel ASA Score: ASA 2 Mallampati Score Class I : Soft palate, uvula, fauces, pillars visible Class II: Soft palate, uvula, fauces visible Class III: Soft palate, base of uvula visible Class IV: Only hard plate visible Mallampati Classification: Class II Surgeon: Halima Diagnosis: R breast CA Surgical Procedure: Removal and replacement of R breast implant Anesthesia History: PONV Allergies: Coded Allergies: CEPHALOSPORINS (Verified Allergy, Severe, 12/13/17) THROAT CLOSES UP,HIVES LEVOFLOXACIN (Verified Allergy, Severe, 11/15/17) THROAT CLOSES UP,HIVES PENICILLINS (Verified Allergy, Severe, 11/15/17) THROAT CLOSES UP,HIVES BACITRACIN (Verified Allergy, Intermediate, 11/16/17) TOPICAL OINTMENT-ITCHY,HIVES NEOMYCIN (Verified Allergy, Intermediate, 11/16/17) TOPICAL OINTMENT-ITCHY,HIVES PRAMOXINE (Verified Allergy, Intermediate, 11/15/17) TOPICAL OINTMENT-ITCHY,HIVES Past Medical History Cardiovascular: Denies: HTN, CAD, IA, valve dz, arrhythmia, other Pulmonary: Denies: asthma, COPD, DAMIÁN, other Gastrointestinal/Genitourinary: Reports: GERD; Denies: CRI, ESRD, other Neurologic/Psychiatric: Reports: depression/anxiety; Denies: dementia, CVA, TIA, other Endocrine: Denies: DM, hypothyroidism, steroids, other HEENT: Denies: cataract (L), cataract (R), glaucoma, SENECA-CAYUGA (L), SENECA-CAYUGA (R), other Hematology/Immune: Denies: anemia, DVT, bleeding disorder, other Musculoskeletal/Integumentary: Denies: OA, RA, DJD, DDD, edema, other PMH Narrative: as above PSxH Narrative: R breast partial mastectomy and reconstruction, hysterectomy, abdominoplasty Anesthesia Pre-op Phys. Exam Physician Exam Last Vital Signs Date Time Temp Pulse Resp B/P (MAP) Pulse Ox O2 Delivery O2 Flow Rate FiO2 01/11/18 07:38 97.6 63 20 114/56 (75) 100 97.6 01/11/18 07:28 Room Air Constitutional: NAD Neurologic: CN 2-12 intact Cardiovascular: RRR, no M/R/G Respiratory: CTA Gastrointestinal: S/NT/ND Airway Exam Mallampati Score: Class II MO: full Neck: flexible ROM: full Teeth: intact Dentures: no upper, no lower Anesthesia Pre-op A/P Labs see chart Studies Pre-op Studies: EKG - NSR Risk Assessment & Plan Assessment: ASA2 Plan: GA with LMA PONV prevention Status Change Before Surgery: No Pre-Antibiotics Drug: Clindamycin 600mg Given Within 1 Hr of Incision: Yes Time Given: 09:50 Trevor Castaneda MD Jan 11, 2018 10:09
[2018-01-11] MEDS ORDERED: DiphenhydrAMINE 50mg/ml Inj IVP PRN (10:15)
[2018-01-11] MEDS ORDERED: fentaNYL 100 mcg/2 mL IV PRN (10:15)
[2018-01-11] MEDS ORDERED: Meperidine 50mg/ml Inj(FOR RIGORS ONLY) IV PRN (10:15)
[2018-01-11] MEDS ORDERED: Ketorolac 30mg Inj IV PRN (10:15)
[2018-01-11] MEDS ORDERED: Midazolam 2mg/2ml Inj IVP PRN (10:15)
[2018-01-11] MEDS ORDERED: Metoclopramide 10mg/2ml Inj IVP PRN (10:15)
[2018-01-11] MEDS ORDERED: Betadine 10% Oint 30gm TOPIC ONE (10:37)
--- NOTE | 2018-01-11 10:58 | Brief Operative Note ---
Immediate Post Operative Note Operative Note Pre-op Diagnosis: status radiation for breast cancer and wanting symmetry Procedure: remove implant from under muscle to place new bigger implant to over the muscle Post-op Diagnosis: same as pre-op Surgeon: ramon Anesthesia: general Specimen: yes Complications: none Condition: stable Fluids: none Estimated Blood Loss: minimal Drains: AVNI Packing: none Implant(s) used?: Yes Christiano Taylor MD Jan 11, 2018 10:58
--- NOTE | 2018-01-11 10:59 | Immediate Post-Op Evaluation ---
Immediate Post-Op Evalulation Immediate Post-Op Evalulation Procedure: removal and replacement of R breast implant Date of Evaluation: Jan 11, 2018 Time of Evaluation: 10:58 IV Fluids: 800 Blood Products: none Estimated Blood Loss: 50 Urinary Output: none Blood Pressure Systolic: 115 Blood Pressure Diastolic: 68 Pulse Rate: 65 Respiratory Rate: 20 O2 Sat by Pulse Oximetry: 99 Temperature (Fahrenheit): 97.8 Pain Score (1-10): 1 Nausea: No Vomiting: No Complications none Patient Status: awake, patent, none Hydration Status: adequate Trevor Castaneda MD Jan 11, 2018 10:59
--- NOTE | 2018-01-11 12:40 | 48 Hour Post Anesthesia Eval ---
Post Anesthesia Evaluation Procedure: removal and replacement of R breast implant Date of Evaluation: Jan 11, 2018 Time of Evaluation: 12:38 Blood Pressure Systolic: 116 0: 72 Pulse Rate: 72 Respiratory Rate: 20 Temperature (Fahrenheit): 97.5 O2 Sat by Pulse Oximetry: 98 Airway: patent Nausea: No Vomiting: No Pain Intensity: 2 Hydration Status: adequate Cardiopulmonary Status: stable Mental Status/LOC: patient returned to baseline Follow-up Care/Observations: n/a Post-Anesthesia Complications: none Follow-up care needed: ready to discharge Trevor Castaneda MD Jan 11, 2018 12:40
--- NOTE | 2018-01-11 16:30 | Operative Note - Dictated ---
DATE OF OPERATION: 01/11/2018 SURGEON: Christiano Taylor M.D. PREOPERATIVE DIAGNOSIS: Status post radiation to right breast status post breast cancer with reconstruction to left and right breast under the muscle with mastopexy done first vertical and then Angulo pattern on the left side and now desires because of the pressure of the muscle over the implant to have the implant over the muscle and this is probably related to the radiation and the contraction of the tissues. PROCEDURE IN DETAIL: The patient understood the risks, complications, and alternative methods of treatment. We began with the prep. IV running in the left upper extremity with general anesthesia given. The patient was injected with 1% Xylocaine and 1:200,000 of epinephrine using a 30-gauge needle. Injection was done vertically as well as horizontally through the inferior border of the nipple-areolar complex. We made the incision with a 15 blade down to the capsule overlying the implant and dissected in the tissue plane above that using first cutting cautery, noting that the tissues are really scarred and then using Metzenbaum scissors, large pocket was completely dissected further with the finger dissection and then cutting cautery. The posterior pocket was then cauterized up and down to allow for the adhesion of the posterior pocket. The saline implant had been removed and we took a new 450 mL saline implant without its air and then injected the saline into that area into the pocket with all the air out of it and then placed the implant into the pocket, which is the submammary pocket. The breast tissue was noted to be pretty much scarred and the skin pocket was scarred. We did the peripheral dissection and placed 450 mL into the implant. We then placed a drain 10-Tanzanian into the pocket to attach to a Uri-Hidalgo. We then sutured using 3-0 Vicryl sutures in the breast tissue and the dermis, multiple sutures and then ran a 2 continuous 4-0 blue Prolene on the left and on the right of the Uri-Hidalgo drain. We then placed Betadine gel because she was allergic to bacitracin. We used the gel because it helped with the seal of the drain. We then placed 4x4s. The patient was then extubated and transferred to the postop recovery facility in satisfactory condition. There was less than 10 mL blood loss. Christiano Taylor M.D. DR: DARYL JOB#: [id number] CC:
== END 2018-01-11 12:25 | disposition home or self-care (01) ==
LOC: SUR 06:52
DX: C50.911 Malignant neoplasm of unspecified site of right female breast (principal); K21.9 Gastro-esophageal reflux disease without esophagitis; F32.9 Major depressive disorder, single episode, unspecified; F41.9 Anxiety disorder, unspecified; Z90.710 Acquired absence of both cervix and uterus; Z88.1 Allergy status to other antibiotic agents; Z88.8 Allergy status to other drugs, medicaments and biological substances
CPT/HCPCS: 19328; 19340; J1885; J2250; J2405; J2704; J3010; 94003; 94150; S0077

== ENCOUNTER 2018-01-12 10:15 | Outpatient (RCR) | payer SELFPAY | END 2018-01-14 12:00 | disposition home or self-care (01) | LOC: WCC 10:15 → EDSTATUS 02-08 07:27 | DX: L59.8 Other specified disorders of the skin and subcutaneous tissue related to radiation (principal); C50.111 Malignant neoplasm of central portion of right female breast; Z88.0 Allergy status to penicillin; Z88.2 Allergy status to sulfonamides; Z88.8 Allergy status to other drugs, medicaments and biological substances; F41.9 Anxiety disorder, unspecified; F32.9 Major depressive disorder, single episode, unspecified ==